=== PATIENT | female | born 1950 | race Caucasian/White ===

== ENCOUNTER 2018-11-13 20:34 | Emergency (ER) | payer OTHER, MEDICARE ==
[2018-11-13] MEDS ORDERED: DIPHTH,PERTUSS(ACELL),TET 0.5 ML DISP.SYRIN IM ONE ×2 (20:39→22:29)
--- NOTE | 2018-11-13 20:39 | PDOC ---
Rapid Medical Evaluation Time Seen by Provider: 11/13/18 20:35 Medical Evaluation: 11/13/18 20:36 I have performed a brief in-person evaluation of this patient. The patient presents with a chief complaint of: cat bite to left hand Pertinent physical exam findings: 4cm linear laceration to coello ulnar aspect of left hand I have ordered the following: boostrix The patient will proceed to the ED for further evaluation. Discharge Disposition - Diagnosis Laceration - Referrals - Patient Instructions - Post Discharge Activity
[2018-11-13 20:41] VITALS: BP 142/69; PULSE 109; TEMP 98; BMI 27.4
--- NOTE | 2018-11-13 22:56 | PDOC ---
History of Present Illness - General Chief Complaint: Bite Stated Complaint: BITE Time Seen by Provider: 11/13/18 20:35 - History of Present Illness Initial Comments: 11/13/18 22:53 68-year-old female presents for evaluation of Bite on her left hand. She states she takes care kicking she was bitten or scratched she is unsure what she states the cancer fully vaccinated. Past History - Past Medical History Allergies/Adverse Reactions: Allergies Allergy/AdvReac Type Severity Reaction Status Date / Time Sulfa (Sulfonamide Allergy Verified 11/13/18 20:41 Antibiotics) Home Medications: Ambulatory Orders Amox-Tr/K Cl [Augmentin - 875Mg Tablet] 1 tab PO BID #20 tablet 11/13/18 Lamotrigine [Lamictal] 200 mg PO ASDIR 11/13/18 COPD: No Kidney Stones: Yes Seizures: Yes Other medical history: chronic fatigue syndrome, fibromyalgia - Suicide/Smoking/Psychosocial Hx Smoking History: Never smoked Have you smoked in the past 12 months: No Information on smoking cessation initiated: No Hx Alcohol Use: No Drug/Substance Use Hx: No Review of Systems - Review of Systems Integumentary: Yes: See HPI *Physical Exam - Vital Signs Last Vital Signs Temp Pulse Resp BP Pulse Ox 98.0 F 109 H 16 142/69 100 11/13/18 20:37 11/13/18 20:37 11/13/18 20:37 11/13/18 20:37 11/13/18 20:37 - Physical Exam Comments: 11/13/18 22:53 There is a jagged 1 cm laceration on the hyperthenar eminence of the left hand exposing subcutaneous fat there are no gross sensorimotor deficits. Moderate Sedation - Procedure Monitoring Vital Signs: Procedure Monitoring Vital Signs Temperature 98.0 F 11/13/18 20:37 Pulse Rate 109 H 11/13/18 20:37 Respiratory Rate 16 11/13/18 20:37 Blood Pressure 142/69 11/13/18 20:37 O2 Sat by Pulse Oximetry (%) 100 11/13/18 20:37 ED Treatment Course - RADIOLOGY Radiology Studies Ordered: Category Date Time Status HAND- LEFT [RAD] Stat Radiology 11/13/18 22:31 Ordered - Medications Given in the ED: ED Medications Discontinued Medications Generic Name Dose Route Start Last Admin Trade Name Freq PRN Reason Stop Dose Admin Diphtheria/Tetanus/Acell Pertussis 0.5 ml 11/13/18 20:39 11/13/18 22:30 Boostrix - IM 11/13/18 20:40 0.5 ml .ONCE ONE Administration Medical Decision Making - Medical Decision Making 11/13/18 22:54 X-ray show no evidence of foreign body. Is refusing by mouth Percocet she would like lidocaine injection for numbing for wound care. I will sign her out to the main emergency room I've written her prescription for Augmentin and given her hand surgery follow-up. *DC/Admit/Observation/Transfer Diagnosis at time of Disposition: Cat bite Diagnosis at time of Disposition: (Ruled Out): Laceration - Discharge Dispostion Disposition: HOME Condition at time of disposition: Stable Decision to Admit order: No - Prescriptions Prescriptions: Amox-Tr/K Cl [Augmentin - 875Mg Tablet] 1 tab PO BID #20 tablet - Referrals Referrals: Nba Vaca MD [Staff Physician] - - Patient Instructions Printed Discharge Instructions: DI for Animal Bites Additional Instructions: Return to the emergency room should symptoms worsen or go unresolved. Please follow-up with hand surgery in 2-3 days for further evaluation and treatment options. Continue wet-to-dry dressing changes as shown in the emergency room for the next 2-3 days. Because this was a Bite your wound will be allowed to heal by secondary intention and should not be sutured. - Post Discharge Activity
[2018-11-13] MEDS ORDERED: LIDOCAINE HCL 1%, 10 MG/ML (20ML VIAL) ONE (23:44)
== END 2018-11-14 00:34 | disposition home or self-care (01) ==
LOC: JERFT 20:34 → JER 20:34
PROC: 3E0234Z Introduction of Serum, Toxoid and Vaccine into Muscle, Percutaneous Approach (ICD-10-PCS; principal; 2018-11-13)
DX: S61.452A Open bite of left hand, initial encounter (principal); W55.01XA Bitten by cat, initial encounter; Y93.K9 Activity, other involving animal care; Y92.89 Other specified places as the place of occurrence of the external cause; Y99.8 Other external cause status
CPT/HCPCS: 73130-TC-LT-FY; 90715; 99281-25